=== PATIENT | male | born 1995 | race African-American/Black ===

== ENCOUNTER 2019-12-20 20:41 | Emergency (ER) | payer OTHER ==
[~2019-12-20] VITALS: Ht 185.4 cm; Wt 154.2 kg
[~2019-12-20 20:41] MED LIST: HYDROCODON-ACE1 EA15 ORAL; IBUPROFEN600 MG ORAL; NKM; NORCO 10-325 T1 EACH ORAL
[2019-12-20 20:55] VITALS: BP 148/89
--- NOTE | 2019-12-20 20:55 | NUR ---
ED Nurse Note: Patient walked in to ED c/o defibrilator buzzing twice since last night. Per pt, his defib has not been checked for years. Denies chest pain. Report discomfort and weird feeling whenever it buzzes. Afebrile/ No acute distress. ERMD at bedside.
[2019-12-20 21:55] VITALS: BP 148/89
--- NOTE | 2019-12-20 21:55 | NUR ---
ED Nurse Note: Pt cleared by ERMD for discharge. DC instructions was given and explained to pt and verbalized understanding of teachings. All medical deviecs such as ID band removed. Pt is AAO x4, ambulatory and left with all personal belongings.
--- NOTE | 2019-12-22 11:17 | Emergency Room Report ---
History of Present Illness General Chief Complaint: Pacemaker/Defibrillator Source: Patient Present Illness HPI Patient is a 24 year old male who presented due to AICD buzzing. Denies any shocks. Denies chest pain or shortness of breath. Had not been having any symptoms. Had not follow up with cardiology since device placement 10 years ago. Denies history of heart failure. Does not take diuretics or antiarrythmics. Allergies: Coded Allergies: No Known Allergies (Unverified , 10/14/13) COVID-19 Screening Contact w/high risk pt: No Recent Travel to affected area: No Experienced COVID-19 symptoms?: No Patient History Past Medical History: see triage record Reviewed Nursing Documentation: PMH: Agreed; PSxH: Agreed Nursing Documentation-PMH Hx Cardiac Problems: Yes - HF Hx Pacemaker: Yes - defib Review of Systems All Other Systems: negative except mentioned in HPI Physical Exam Vital Signs Date Time Temp Pulse Resp B/P (MAP) Pulse Ox O2 Delivery O2 Flow Rate FiO2 12/20/19 20:48 98.2 78 18 148/89 (108) 97 Room Air General Appearance: well appearing, no apparent distress, alert, GCS 15, obese Head: normocephalic, atraumatic ENT: hearing grossly normal, normal voice Neck: full range of motion, supple Respiratory: no respiratory distress, speaking full sentences Musculoskeletal: no calf tenderness Neurologic: normal gait Psychiatric: mood/affect normal Skin: no rash Medical Decision Making Diagnostic Impression: Primary Impression: AICD problem ER Course Patient presented fo AICD buzzing. Has a ST [employer] AICD. I contacted the patient' s EP who stated likely a device problem and needs interrogation. Dr. Granados agreed to see the patient on Wednesday. Patient will be discharged home. EKG shows no acute changes. Patient to return if any concerns. EKG Diagnostic Results Rate: normal Rhythm: NSR ST Segments: no acute changes Last Vital Signs Date Time Temp Pulse Resp B/P (MAP) Pulse Ox O2 Delivery O2 Flow Rate FiO2 12/20/19 21:55 98.2 78 18 148/89 97 Room Air Status: improved Disposition: HOME, SELF-CARE Condition: Stable Patient Instructions: Cardioverter Defibrillator Implantation Additional Instructions: Follow up with Dr. Granados on Wednesday. Return if worse. Franklin Liz MD Dec 22, 2019 11:17
== END 2019-12-20 21:55 | disposition home or self-care (01) ==
LOC: EMR 21:15
DX: T82.897A Other specified complication of cardiac prosthetic devices, implants and grafts, initial encounter (principal); X58.XXXA Exposure to other specified factors, initial encounter; Y92.9 Unspecified place or not applicable; E66.9 Obesity, unspecified
CPT/HCPCS: 93005; 99282